=== PATIENT | female | born 1980 | race Caucasian/White ===

== ENCOUNTER 2018-11-13 13:10 | Outpatient (CLI) | payer OTHER ==
[2018-11-13] MEDS ORDERED: IOHEXOL 50 ML IV ONE (13:51)
== END 2018-11-13 20:53 | disposition home or self-care (01) ==
LOC: SRD 13:10
PROVIDERS: ATTEND Specialist
DX: R93.89 Abnormal findings on diagnostic imaging of other specified body structures (principal); K56.41 Fecal impaction
CPT/HCPCS: 58340; 74740; C1751; Q9967